=== PATIENT | female | born 1975 | race Caucasian/White ===

== ENCOUNTER 2019-05-26 20:16 | Emergency (ER) | payer MEDICAID ==
[~2019-05-26] VITALS: Ht 152.4 cm; Wt 104.3 kg
--- NOTE | 2019-05-26 20:19 | NUR ---
[id number] FROM HOME C/C SUBSTERNAL CP RADIATING TO BACK, GIVEN 3 NITRO, ZOFRAN, [id number], RELIEF. DENIES PAIN NOW. +N/V, TO ER BED 7, HOOKED TO MONITOR, CHANGED TO GOWN, AWAITING MD SEAY.
--- NOTE | 2019-05-26 20:22 | NUR ---
DR HYMAN AT BEDSIDE
[2019-05-26 20:34] LABS: BASOPHILS # (AUTO) 0.1 /CMM (0.0-0.2); BASOPHILS % (AUTO) 0.7 % (0.0-2.0); EOSINOPHILS % (AUTO) 1.4 % (0.0-6.0); HEMATOCRIT 41 % (33-45); HEMOGLOBIN 13.6 g/dL (11.5-14.8); LYMPHOCYTES # (AUTO) 3.7 /CMM (0.8-4.8); LYMPHOCYTES % (AUTO) 36.7 % (20.0-44.0); MEAN CORPUSCULAR HGB CONC 33 g/dl (31.0-36.0); MEAN CORPUSCULAR VOLUME 86 fL (82-100); MONOCYTES # (AUTO) 0.7 /CMM (0.1-1.30); MONOCYTES % (AUTO) 6.8 % (2.0-12.0); NEUTROPHILS # (AUTO) 5.4 /CMM (1.8-8.9); NEUTROPHILS % (AUTO) 54.4 % (43.0-81.0); PLATELET COUNT (AUTO) 248 /CMM (150-450); RED BLOOD CELL COUNT(AUTO) 4.74 MIL/uL (4.0-5.2)
[2019-05-26 20:42] LABS: CALCIUM, SERUM 8.9 mg/dL (8.5-10.1); CARBON DIOXIDE 25 mmol/L (21-32); CHLORIDE 103 mmol/L (98-107); CREATININE 0.8 mg/dL (0.6-1.3); GLUCOSE 121 mg/dL (74-106); POTASSIUM 3.1 mmol/L (3.5-5.1); SODIUM SERUM 140 mmol/L (136-145); UREA NITROGEN, BLOOD 13 mg/dL (7-18)
--- NOTE | 2019-05-26 20:54 | NUR ---
PATIENT C/O HEADACHE, MADE MD AWARE, VERBAL ORDER RECEIVED FOR TYLENOL 1000MG PO. CARRIED OUT
[2019-05-26] MEDS ORDERED: ACETAMINOPHEN ES 500 MG TABLET ONE (20:55)
[2019-05-26] MEDS ORDERED: POTASSIUM CHLORIDE 20 MEQ TAB.PRT.SR PO ONE ×2 (21:00)
[2019-05-26] MEDS ORDERED: ACETAMINOPHEN ES 500 MG TABLET PO ONE (21:30)
[2019-05-26] MEDS ORDERED: IV NS 0.9% 1,000 ML BAG IV ONE (22:00)
--- NOTE | 2019-05-26 23:10 | NUR ---
PLATE DRILLER AT BEDSIDE FOR REPEAT TROPONIN
--- NOTE | 2019-05-26 23:43 | NUR ---
ENDORSEMENT GIVEN TO JAMIE ARCE FOR CHANDU
[2019-05-27 00:18] VITALS: BP 118/77
== END 2019-05-27 00:18 | disposition home or self-care (01) ==
LOC: ER 20:19
DX: R07.89 Other chest pain (principal); E87.6 Hypokalemia; Z98.890 Other specified postprocedural states
CPT/HCPCS: 36415; 71045; 80048; 84484 ×2; 85025; 93005 ×2; 99284; J7030

== ENCOUNTER 2020-07-24 11:54 | Emergency (ER) | payer MEDICAID ==
[~2020-07-24] VITALS: Ht 152.4 cm; Wt 99.8 kg
[2020-07-24 12:15] VITALS: BP 130/76
--- NOTE | 2020-07-24 14:20 | NUR ---
Patient discharged to home in stable condition. Written and verbal after care instructions given. Patient verbalizes understanding of instruction. Pt ambulatory with a steady gait
== END 2020-07-24 14:25 | disposition home or self-care (01) ==
LOC: ER 11:56
DX: U07.1 COVID-19 (principal); Z98.890 Other specified postprocedural states
CPT/HCPCS: 71045-TC